=== PATIENT | male | born 1990 | race Hispanic/Latino ===

== ENCOUNTER 2018-06-16 20:35 | Emergency (ER) | payer OTHER ==
[2018-06-16 21:19] VITALS: RESP 18
--- NOTE | 2018-06-16 21:29 | ED PDOC ---
Lower Extremity Pain/Injury Time Seen by Provider: 06/16/18 21:19 Chief Complaint (Nursing): Lower Extremity Problem/Injury Chief Complaint (Provider): Left Ankle Pain History Per: Patient History/Exam Limitations: no limitations Onset/Duration Of Symptoms: Days (x1) Current Symptoms Are (Timing): Still Present Additional Complaint(s): 27 year old male presents to the ED for evaluation of left ankle pain. Patient reports that yesterday he jumped over a fence and twisted his left ankle. Otherwise, denies numbness or tingling. PMD: none provided Past Medical History Reviewed: Historical Data, Nursing Documentation, Vital Signs Vital Signs: Last Vital Signs Temp 98.1 F 06/16/18 21:16 Pulse 66 06/16/18 21:16 Resp 18 06/16/18 21:16 BP 130/71 06/16/18 21:16 Pulse Ox 99 06/16/18 21:16 - Medical History PMH: No Chronic Diseases - Surgical History Surgical History: No Surg Hx - Family History Family History: States: Unknown Family Hx - Social History Current smoker - smoking cessation education provided: No Alcohol: Social Drugs: Denies - Allergies Allergies/Adverse Reactions: Allergies Allergy/AdvReac Type Severity Reaction Status Date / Time No Known Allergies Allergy Verified 06/16/18 21:16 Review of Systems ROS Statement: Except As Marked, All Systems Reviewed And Found Negative Musculoskeletal: Positive for: Other (left ankle pain) Neurological: Negative for: Numbness (or tingling) Physical Exam - Reviewed Nursing Documentation Reviewed: Yes Vital Signs Reviewed: Yes - Physical Exam Appears: Positive for: No Acute Distress Skin: Positive for: Normal Color, Warm, Dry Pulses-Dorsalis Pedis (L): 2+ Pulses-Dorsalis Pedis (R): 2+ Extremity: Positive for: Tenderness (minimal tenderness and ecchymosis below left lateral malleolus; no foot tenderness), Capillary Refill (less than 2 seconds). Negative for: Deformity, Swelling - ECG O2 Sat by Pulse Oximetry: 99 (RA) Pulse Ox Interpretation: Normal - Progress ED Course And Treament: Ankle/foot x-rays: exostosis in L posterior tibia; no fx Ankle immobilized in aircast splint. Crutches provided. Medical Decision Making Medical Decision Making: Time: 2120 Initial Impression: left ankle pain, r/o fracture Initial Plan: --XR left ankle --XR left foot Scribe Attestation: Documented by Dorita Sheppard acting as a scribe for Cuco Restrepo PA-C. Provider Scribe Attestation: All medical record entries made by the Scribe were at my direction and personally dictated by me. I have reviewed the chart and agree that the record accurately reflects my personal performance of the history, physical exam, medical decision making, and the department course for this patient. I have also personally directed, reviewed, and agree with the discharge instructions and disposition. Disposition - Clinical Impression Clinical Impression: Ankle sprain - Patient ED Disposition Is Patient to be Admitted: No - [facility] [Outside[facility] Disposition: Routine/Home Disposition Time: 23:00 Condition: STABLE Additional Instructions: ADALGISA SHEA, thank you for letting us take care of you today. Your provider was Aundrea Shelby MD and you were treated for LT ANKLE PAIN. The emergency medical care you received today was directed at your acute symptoms. If you were prescribed any medication, please fill it and take as directed. It may take several days for your symptoms to resolve. Return to the Emergency Department if your symptoms worsen, do not improve, or if you have any other problems. Please contact your doctor or call one of the physicians/clinics you have been referred to that are listed on the Patient Visit Information form that is included in your discharge packet. Bring any paperwork you were given at discharge with you along with any medications you are taking to your follow up visit. Our treatment cannot replace ongoing medical care by a primary care provider outside of the emergency department. [facility] to [facility] part of your care today. If you had an X-Ray or CT scan: A Radiologist will review the ED reading if any change in treatment is needed we will contact you. If you had a blood, urine, or wound culture: It will take several days for the results, if any change in treatment is needed we will contact you. If you had an STI test: It will take 48 hours for the results. Please call after 1 week if you have not heard back. Instructions: Ankle Sprain (DC) Forms: [employer] ([place]) Print Language: INDIAN
[2018-06-16 23:14] VITALS: BP 120/78; PULSE 78; TEMP 98
--- NOTE | 2018-06-17 09:16 | RAD ---
Date of service: 06/16/2018 PROCEDURE: Left Ankle Radiographs. HISTORY: trauma COMPARISON: None FINDINGS: BONES: No acute fracture or destructive bony lesion identified. A small exostosis seen related to the distal left tibial diametaphysis medially as well as the posterior diaphysis of the distal tibia. JOINTS: Normal. No osteoarthritis. Ankle mortise maintained. Talar dome intact SOFT TISSUES: Normal. OTHER FINDINGS: None. IMPRESSION: No acute fracture or dislocation. Small exostosis seen related to the distal left tibia and fibula as discussed above.
--- NOTE | 2018-06-17 09:17 | RAD ---
Date of service: 06/16/2018 PROCEDURE: Left Foot Radiographs. HISTORY: trauma COMPARISON: None. FINDINGS: BONES: No acute fracture or destructive bony lesion identified. JOINTS: Normal. SOFT TISSUES: Normal. OTHER FINDINGS: None. IMPRESSION: Unremarkable left foot radiographs.
[2018-06-17 18:19] VITALS: O2SAT 99
== END 2018-06-16 23:12 | disposition home or self-care (01) ==
LOC: H.ER 20:35
DX: S93.402A Sprain of unspecified ligament of left ankle, initial encounter (principal); X50.9XXA Other and unspecified overexertion or strenuous movements or postures, initial encounter; Y92.89 Other specified places as the place of occurrence of the external cause